=== PATIENT | male | born 1980 | race Caucasian/White ===

== ENCOUNTER 2018-03-29 23:29 | Emergency (ER) | payer MEDICAID ==
[~2018-03-29] VITALS: Ht 188 cm; Wt 75.9 kg
[~2018-03-29 23:29] MED LIST: ACET-76 PO; ACET325T14 PO; AMOX1TAB64 PO; DIPH25CA64 PO; GABA800T2 PO; HYDR2TAB29 PO; LORA0.5T PO; MELO15TA6 PO; METH500T97 PO; MULT-297 PO; NICO-487 TD; PHENYLEPHRINE NAS; QUET25TA5 PO; VENL75CA PO; VITB1TAB PO
[2018-03-29 23:31] VITALS: BP 147/93
[2018-03-29] MEDS ORDERED: ACETAMINOPHEN 500 MG TABLET ONE (23:59)
[2018-03-30] MEDS ORDERED: ACETAMINOPHEN 500 MG TABLET PO ONE
== END 2018-03-30 00:13 | disposition home or self-care (01) ==
LOC: ED 23:42
DX: M25.531 Pain in right wrist (principal); F17.200 Nicotine dependence, unspecified, uncomplicated; F32.9 Major depressive disorder, single episode, unspecified
CPT/HCPCS: 29125; 29260; 99283